=== PATIENT | female | born 1995 | race Hispanic/Latino ===

== ENCOUNTER 2019-03-14 14:49 | Emergency (ER) | payer OTHER, SELFPAY | END 2019-03-14 16:28 | disposition home or self-care (01) | LOC: ERS 14:49 | DX: S01.511A Laceration without foreign body of lip, initial encounter (principal); W18.30XA Fall on same level, unspecified, initial encounter | CPT/HCPCS: 12011 ==

== ENCOUNTER 2022-07-04 21:06 | Emergency (ER) | payer MEDICAID, OTHER | END 2022-07-04 23:27 | disposition home or self-care (01) | LOC: ERS 21:06 | DX: R21 Rash and other nonspecific skin eruption (principal) | CPT/HCPCS: 99282 ==